=== PATIENT | male | born 1990 | race Caucasian/White ===

== ENCOUNTER → 2016-10-12 | Day surgery (SDC) | payer OTHER ==
[~2016-10-12] VITALS: Ht 172.7 cm; Wt 83.9 kg
[~2016-10-12] MED LIST: BUPIVACAINE HCL 0.25% 30 ML VIAL As Ordered ONE; GLYCOPYRROLATE INJ 0.2 MG/ML 2 ML VIAL As Ordered ONE; HYDROmorphone HCL 2 MG/ML 1ML VIAL (J1170) As Ordered ONE; KETOROLAC 30 MG/ML VIAL (J1885) IV SCH; LIDOCAINE 1% SDV INJ 30 ML VIAL As Ordered ONE; LIDOCAINE 2% INJ 100 MG/5 ML SDV (FOR ANES.) As Ordered ONE; LR 1,000 ML IV SCH; METOCLOPRAMIDE INJ 10MG/2ML VIAL (J2765) As Ordered ONE; MIDAZOLAM INJ 2 MG/2 ML VIAL (J2250) As Ordered ONE; NEOSTIGMINE 1MG/ML 5 ML SYRINGE (J2710) As Ordered ONE; NO HOME MEDS; NORCO, ANEXSIA 5/325MG TABLET (HYDROcodone/ACETAMINOPHEN) PO PRN; ONDANSETRON 4MG/2ML VIAL (J2405) IV PRN; PERCOCET 5MG/325MG TAB As Ordered ONE; PERCOCET 5MG/325MG TAB PO PRN; PROPOFOL 200 MG/20 ML VIAL As Ordered ONE; ROCURONIUM BROMIDE 50 MG/5 ML VIAL As Ordered ONE; dexameTHASONE 4 MG/ML 1ML VIAL (J1100) As Ordered ONE; fentaNYL 100 MCG/2 ML INJECTION (J3010) IV PRN; fentaNYL 250 MCG/5 ML INJECTION (J3010) As Ordered ONE
[2016-10-12 18:30] VITALS: BP 132/62
--- NOTE | 2016-10-14 08:49 | RO ---
DATE OF PROCEDURE: 10/12/2016 PREOPERATIVE DIAGNOSIS: Umbilical hernia. POSTOPERATIVE DIAGNOSIS: Umbilical hernia. PROCEDURE: Laparoscopic umbilical hernia repair using 9 cm Parietex composite mesh. SURGEON: Miles Silveira MD ASSISTANTS: DO Carly Mccain MS III ANESTHESIA: General anesthesia. ESTIMATED BLOOD LOSS: Less than 10 mL. COMPLICATIONS: None. REMARKS: The patient tolerated procedure well. 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 No previous incarceration. He was sent to my office for operative repair. After a full discussion, we have decided on performing a laparoscopic umbilical hernia repair. Patient was brought to the operating room. Prior to this, he received Ancef preoperatively for prophylaxis. General endotracheal anesthesia was started without any complications. His abdomen prepped and draped in usual sterile fashion. After a surgical time-out, we began our surgery. We entered the abdomen through a left lateral subcostal incision. A Veress needle was then inserted in a controlled fashion. Intra-abdominal placement confirming saline drop technique. CO2 insufflation started to pressure of 15 mmHg. Using the same incision, a 5 mm Visiport was placed under direct vision. The insertion site was inspected for injury, none was found. He was then placed on the right lateral decubitus position. A second working port was placed on the left lower quadrant area just medial to the anterior-superior iliac spine. On both visualization and palpation externally, about a 1.5 to 2 cm defect, which contains preperitoneal fat, was then noted. Using a Harmonic scalpel, the tissues around the hernia defect was opened up. The preperitoneal fat inside the hernia defect was removed. We further freed up the umbilical ligament as well as the falciform ligament above to accommodate the mesh. After doing so and checking for hemostasis, I chose a 9 cm Parietex composite mesh. Two transabdominal stay sutures were placed on opposite ends. This was rolled tightly, placed into the abdomen through the upper quadrant port. This was then laid flat underneath the umbilicus. The intra-abdominal pressure was decreased to 10 mmHg. Using Yemi-Lira device, the mesh was pulled up. The transabdominal sutures was pulled up, centering the mesh in our hernia defect. Once this was noted to be laying flat, two rows of SecureStrap tacks was placed to attach the mesh to the abdominal wall. The outer tacks were placed 2 cm apart along the periphery of the mesh and in a row just outside of the mesh defect. After doing this, the previously preperitoneal fat was removed from the abdomen. We surveyed the abdomen for injury, none was found. The abdomen was deflated. All ports removed. The transabdominal sutures tied off. The incisions closed with #4-0 Monocryl in subcuticular fashion. We used a Dermabond to close the incision. The patient was promptly awakened, extubated and brought to recovery room stable.
== END ==
LOC: M SDC 07:37
PROVIDERS: ATTEND Surgery
DX: K42.9 Umbilical hernia without obstruction or gangrene (principal)
CPT/HCPCS: 49652; 88302; C1781; J0690; J1100; J1170; J2250; J2710; J2765; J3010